=== PATIENT | male | born 1945 | race Caucasian/White ===

== ENCOUNTER 2019-08-05 16:11 | Observation (INO) ==
[2019-08-05] MEDS ORDERED: ACETAMINOPHEN 325 MG TABLET PO PRN (16:48)
[2019-08-05] MEDS ORDERED: ONDANSETRON 4 MG/2 ML VIAL IV PRN (16:48)
[2019-08-05] MEDS: metroNIDAZOLE INJ 500 MG in PREMIX 1 EACH IV SCH (18:14)
[2019-08-05] MEDS: LACTATED RINGERS 1,000 ML IV SCH (18:14)
[2019-08-05] MEDS: CIPROFLOXACIN INJ 400 MG in PREMIX 1 EACH IV SCH (21:38)
[2019-08-06] MEDS: metroNIDAZOLE INJ 500 MG in PREMIX 1 EACH IV SCH ×3 (01:22→17:35)
[2019-08-06 05:03] LABS: Basophils % 0.1 % (0.0-0.8); Hematocrit 43.6 VOL% (42.0-52.0); Hemoglobin 14.8 GM/DL (14.0-18.0); Immature Granulocytes % 0.3 %; Immature Granulocytes Absolute 0.03 #; Lymphocytes # 1.3 10*3/uL (1.4-4.0); Lymphocytes % 14.3 % (21.2-54.2); Mean Corpuscular HGB Conc 33.9 GM/DL (32-36); Mean Corpuscular Volume 93.6 FL (87-102); Mean Platelet Volume 11.9 FL (9.6-12.0); Monocytes % 8.2 % (1.7-12.7); Neutrophils % 77.1 % (38.7-73.9); Platelet Count 92 T/CUMM (130-400); Red Blood Count 4.66 MC/CUMM (3.8-5.5); Red Cell Distribution Width 13.2 % (9.3-17.3)
[2019-08-06 05:23] LABS: Calcium 8.1 MG/DL (8.5-10.1); Osmolality,Calculated 277.8 MOS/KG (273-304)
[2019-08-06 05:25] LABS: Platelet Estimate Decreased
[2019-08-06] MEDS: LACTATED RINGERS 1,000 ML IV SCH ×3 (06:22→22:07)
[2019-08-06] MEDS ORDERED: BUPIVACAINE MPF 0.25% 30 ML VIAL ONE (06:46)
[2019-08-06] MEDS ORDERED: LIDOCAINE 1%/EPI INJ 20 ML VIAL ONE ×2 (06:46→12:18)
[2019-08-06] MEDS ORDERED: TISSUE ADHESIVE 1 EACH APPLICATOR TOP ONE ×2 (06:47→12:17)
[2019-08-06] MEDS ORDERED: MAGNESIUM SULF RIDER 4 GM in PREMIX 1 EACH IV PRN (08:08)
[2019-08-06] MEDS ORDERED: MAGNESIUM SULF RIDER 2 GM in PREMIX 1 EACH IV PRN (08:08)
[2019-08-06] MEDS: POTASSIUM CHLORIDE RIDER 10 MEQ in PREMIX 1 EACH IV PRN ×4 (08:38→11:52)
[2019-08-06] MEDS: ASPIRIN EC 81 MG TABLET PO SCH (08:51)
[2019-08-06] MEDS: LORATADINE 10 MG TABLET PO SCH (08:51)
[2019-08-06] MEDS: ASCORBIC ACID 500 MG TABLET PO SCH (08:55)
[2019-08-06] MEDS: POTASSIUM GLUCONATE 500 MG TABLET PO SCH (08:55)
[2019-08-06] MEDS: PANTOPRAZOLE 40 MG TABLET PO SCH (08:55)
[2019-08-06] MEDS: METOPROLOL TARTRATE 5 MG/5 ML VIAL IV SCH ×3 (09:13→09:28)
[2019-08-06] MEDS ORDERED: BUPIVACAINE 0.25% /EPI 10 ML VIAL ONE (12:17)
[2019-08-06] MEDS: CIPROFLOXACIN INJ 400 MG in PREMIX 1 EACH IV SCH ×2 (12:49→22:07)
[2019-08-06] MEDS ORDERED: ONDANSETRON 4 MG/2 ML VIAL IV PRN (13:58)
[2019-08-06] MEDS ORDERED: HYDROmorphone 2 MG/1 ML VIAL IV PRN (13:58)
[2019-08-06] MEDS ORDERED: SEVOFLURANE 1 UNIT/15 MINUTE INH ONE (14:03)
[2019-08-06] MEDS ORDERED: propofoL 200 MG/20 ML VIAL IV ONE (14:03)
[2019-08-06] MEDS ORDERED: LIDOCAINE 2% 5 ML VIAL ONE (14:03)
[2019-08-06] MEDS ORDERED: ROCURONIUM 100 MG/10 ML VIAL IV ONE (14:04)
[2019-08-06] MEDS ORDERED: SUCCINYLCHOLINE 200 MG/10 ML VIAL ONE (14:04)
[2019-08-06] MEDS ORDERED: DEXAMETHASONE 4 MG/1 ML VIAL ONE (14:04)
[2019-08-06] MEDS ORDERED: fentaNYL 100 MCG/2 ML VIAL ONE (14:04)
[2019-08-06] MEDS ORDERED: LACTATED RINGERS 1,000 ML IV ONE (14:05)
[2019-08-06] MEDS ORDERED: NEOSTIGMINE 10 MG/10 ML VIAL ONE (14:05)
[2019-08-06] MEDS ORDERED: GLYCOPYRROLATE 0.4 MG/2 ML VIAL ONE (14:05)
[2019-08-06] MEDS ORDERED: KETOROLAC 30 MG/1 ML VIAL ONE (14:05)
[2019-08-06] MEDS ORDERED: PHENYLEPHRINE 1 MG/10 ML SYRINGE IV ONE (14:05)
[2019-08-06] MEDS: METOPROLOL SUCCINATE XL 25 MG TABLET PO SCH (15:25)
[2019-08-07] MEDS: metroNIDAZOLE INJ 500 MG in PREMIX 1 EACH IV SCH ×3 (01:51→17:03)
[2019-08-07] MEDS: LACTATED RINGERS 1,000 ML IV SCH (01:52)
[2019-08-07 07:45] LABS: Basophils % 0.2 % (0.0-0.8); Eosinophils % 0.1 % (0.00-10.9); Hematocrit 42.7 VOL% (42.0-52.0); Hemoglobin 14.4 GM/DL (14.0-18.0); Immature Granulocytes % 0.7 %; Immature Granulocytes Absolute 0.07 #; Lymphocytes # 1.8 10*3/uL (1.4-4.0); Lymphocytes % 17.9 % (21.2-54.2); Mean Corpuscular HGB Conc 33.7 GM/DL (32-36); Mean Corpuscular Volume 95.5 FL (87-102); Mean Platelet Volume 11.5 FL (9.6-12.0); Monocytes % 6.8 % (1.7-12.7); Neutrophils % 74.3 % (38.7-73.9); Platelet Count 110 T/CUMM (130-400); Red Blood Count 4.47 MC/CUMM (3.8-5.5); Red Cell Distribution Width 13.4 % (9.3-17.3)
[2019-08-07 08:01] LABS: Calcium 8.2 MG/DL (8.5-10.1); Osmolality,Calculated 277.1 MOS/KG (273-304)
[2019-08-07] MEDS: CIPROFLOXACIN INJ 400 MG in PREMIX 1 EACH IV SCH ×2 (09:41→22:11)
[2019-08-07] MEDS: POTASSIUM GLUCONATE 500 MG TABLET PO SCH (09:46)
[2019-08-07] MEDS: ASPIRIN EC 81 MG TABLET PO SCH (09:46)
[2019-08-07] MEDS: ASCORBIC ACID 500 MG TABLET PO SCH (09:46)
[2019-08-07] MEDS: METOPROLOL SUCCINATE XL 25 MG TABLET PO SCH ×2 (09:46→22:11)
[2019-08-07] MEDS: LORATADINE 10 MG TABLET PO SCH (09:47)
[2019-08-07] MEDS: PANTOPRAZOLE 40 MG TABLET PO SCH (09:47)
[2019-08-07] MEDS ORDERED: DILTIAZEM 50 MG/10 ML VIAL IV ONE (12:05)
[2019-08-07] MEDS ORDERED: DILTIAZEM 30 MG TABLET PO SCH (13:00)
[2019-08-07] MEDS ORDERED: METOPROLOL SUCCINATE XL 25 MG TABLET PO ONE ×2 (13:52)
[2019-08-07] MEDS: DILTIAZEM CD 120 MG CAPSULE PO SCH (16:03)
[2019-08-07] MEDS: APIXABAN 5 MG TABLET PO SCH (22:11)
[2019-08-08] MEDS: metroNIDAZOLE INJ 500 MG in PREMIX 1 EACH IV SCH ×2 (00:27→10:50)
[2019-08-08 05:19] LABS: Basophils % 0.4 % (0.0-0.8); Eosinophils # 0.1 10*3/uL (0.0-0.87); Eosinophils % 0.8 % (0.00-10.9); Hematocrit 38.8 VOL% (42.0-52.0); Hemoglobin 12.8 GM/DL (14.0-18.0); Immature Granulocytes % 0.8 %; Immature Granulocytes Absolute 0.06 #; Lymphocytes % 25.8 % (21.2-54.2); Mean Corpuscular Volume 95.8 FL (87-102); Mean Platelet Volume 11.2 FL (9.6-12.0); Monocytes % 6.1 % (1.7-12.7); Neutrophils % 66.1 % (38.7-73.9); Platelet Count 118 T/CUMM (130-400); Red Blood Count 4.05 MC/CUMM (3.8-5.5); Red Cell Distribution Width 13.4 % (9.3-17.3); White Blood Count 7.7 T/CUMM (4-12)
[2019-08-08] MEDS: CIPROFLOXACIN INJ 400 MG in PREMIX 1 EACH IV SCH (09:18)
[2019-08-08] MEDS: DILTIAZEM CD 120 MG CAPSULE PO SCH (09:25)
[2019-08-08] MEDS: METOPROLOL SUCCINATE XL 25 MG TABLET PO SCH (09:26)
[2019-08-08] MEDS: PANTOPRAZOLE 40 MG TABLET PO SCH (10:56)
[2019-08-08] MEDS: ASPIRIN EC 81 MG TABLET PO SCH (10:56)
[2019-08-08] MEDS: LORATADINE 10 MG TABLET PO SCH (10:56)
[2019-08-08] MEDS: APIXABAN 5 MG TABLET PO SCH (10:56)
[2019-08-08] MEDS: ASCORBIC ACID 500 MG TABLET PO SCH (10:56)
[2019-08-08] MEDS: POTASSIUM GLUCONATE 500 MG TABLET PO SCH (10:56)
[2019-08-08] MEDS ORDERED: METOPROLOL SUCCINATE XL 25 MG TABLET PO ONE (11:00)
[2019-08-08] MEDS ORDERED: METOPROLOL SUCCINATE XL 50 MG TABLET PO SCH (11:00)
[2019-08-08 13:44] VITALS: BP 124/74
== END 2019-08-08 14:29 | disposition home or self-care (01) ==
LOC: N.ED 16:11 → N.EDINP 16:11 → N.5E 17:39 → N.TELEN 08-06 14:56
PROVIDERS: ADMIT Surgery; ATTEND Surgery